=== PATIENT | female | born 1995 | race Caucasian/White ===

== ENCOUNTER 2023-01-22 09:59 | Outpatient (CLI) | payer OTHER, SELFPAY ==
[2023-01-22 10:33] LABS: Hematocrit 32.3 % (37.0-47.0); Hemoglobin 8.5 g/dL (12.0-15.0)
== END 2023-01-22 10:00 | disposition home or self-care (01) ==
LOC: ANHSURGERY 10:04
PROVIDERS: Anesthesiology; Visit Provider Obstetrics & Gynecology Gynecologic Oncology
DX: D64.9 Anemia, unspecified (principal); Z01.818 Encounter for other preprocedural examination
CPT/HCPCS: 36415; 85014; 85018

== ENCOUNTER 2023-01-26 02:41 | Day surgery (SDC) | payer OTHER, SELFPAY ==
--- NOTE | 2023-01-16 12:04 | SUR.PREOP ---
Report to the Outpatient Waiting Room, entrance under the green pavilion located off [facility], at time 0930 on date 01/26/23. Planned Procedure Time: 1130. Time changes happen often and if your time is changed the preop area will call you the afternoon before. - You and your visitor will be asked to self-screen and do not enter if you have any COVID symptoms. - A mask is optional within the hospital at this time. Patients may have clear liquids (water, carbonated beverages, clear teas, apple juice) until 3 hours prior to surgery with a maximum of 20 ounces. - NO CLEAR LIQUIDS AFTER 0830 - No food from midnight until time of surgery - Infants may have breast milk until 4 hours before surgery, formula 6 hours prior to surgery. - Children will be allowed to drink immediately following surgery. If applicable, please bring a bottle or sippy cup to assist with drinking. Juice, water, soda, and popsicles are readily available. For infants on formula, please bring formula the day of surgery. Pacifiers are allowed. Take the following medications with a SIP of water the morning of surgery: N/A DO NOT STOP ANY OF YOUR OTHER PRESCRIPTION MEDICATIONS PRIOR TO SURGERY ?EXCEPT THE FOLLOWING Medications to discontinue per physician N/A Date to take last dose Please no make-up, nail slovak, hairspray, perfume, deodorant, or body powder the day of surgery. No jewelry (including any body piercings) or valuables the day of surgery, leave them at home. Please take a shower or bath the night before, or the morning of, surgery with an antibacterial soap. Wear comfortable, loose fitting clothing. Children are encouraged to wear pajamas. - Jewelry must be removed prior to entering the operating room. Rings and piercings that are not removed may be cut off. - The hospital will not accept responsibility for valuables. - Please leave all valuables, including medications, at home the day of surgery. If you are going home after surgery, a licensed hole digger truck driver must drive you home. - NO public transportation without another adult if you receive anesthesia. - We recommend that an adult stay with you for 24 hours following discharge. - We also recommend that you do not drive, make important decision, drink alcoholic beverages, or take any drugs that were not prescribed by your health care provider for at least 24 hours after your discharge time. For Pediatric surgeries, we recommend two adults accompany the child home. Follow any additional instructions given to you from your surgeon. If you or anyone in your household have experienced Covid symptoms in the past week, please notify your surgeon or the nurse liaison at the phone number below for possible testing. Telephone instructions given to NICKY MEANS and asked if any additional questions and then verbalized understanding. Patient advised to call surgeon office or pre surgery nurse liaison [phone] if any additional questions.
[2023-01-16 12:19] VITALS: BMI 35.5
--- NOTE | 2023-01-25 14:23 | P.PNAN_ITS ---
Anes - Initial Pre Proc Eval Procedure: Operation Date: 01/26/23 07:30 Proposed Procedures p Diagnostic Laparoscopy, Bilateral Salpingectomy - Stephanie Cortes DO Date/Time: 01/25/23 14:23 Surgeon: Stephanie Cortes DO Pre Op Diagnosis: desires surgical sterility Patient Data Age: 27 Gender: F Height: 1.6 m Weight: 91 kg Allergies Allergy/AdvReac Type Severity Reaction Status Date / Time Sulfa (Sulfonamide Allergy Severe Swelling Verified 01/26/23 06:47 Antibiotics) of Lip/Tongue/Throat erythromycin base Allergy Unknown Verified 01/26/23 06:47 Home Medications Medication Instructions Recorded Confirmed Type No Home Medications 01/16/23 01/16/23 History Patient hx anesthesia problems: none Family hx anesthesia problems: none Results Review: All pre-operative results and documents have been reviewed as part of the pre- operative evaluation. [facility] Past Medical History Medical History (Updated 01/25/23 @ 14:23 by Ronni Massey DO) Anxiety Social History Social History Smoking status: Never smoker Living arrangements: with family Spiritual care concerns: No Anes - Eval Final PreProcedure Day of Procedure 01/25/23 14:23 Patient weight: obese Heart: regular rate and rhythm Lungs: clear to auscultation Airway: Mallampati scale class II Neurological: alert and oriented Last oral intake: >/= 8 hours ASA classification: II Emergent: no Anesthetic plan: proceed Anesthesia type and monitoring: general ETT and standard monitoring Results Review: All pre-operative results and documents have been reviewed as part of the pre- operative evaluation. Informed Consent: The patient's anesthetic plan and its attendant risks and benefits were discussed with the patient/family/POA. Questions were solicited and answers provided to the satisfaction of the patient/family/POA.
[2023-01-26] VITALS (7 sets, daily range): BP systolic 113–125; BP diastolic 72–90; PULSE 74–86; RESP 16–18; TEMP 36.6; O2SAT 94–100
[2023-01-26] MEDS: ACETAMINOPHEN 500 MG TABLET 1000 MG PO (06:50)
[2023-01-26] MEDS: LACTATED RINGERS 1,000 ML 30 ML IV CONT (06:50)
--- NOTE | 2023-01-26 07:16 | WPDHPUPDATE1 ---
History and Physical Update Update Date/Time: 01/26/23 07:16 History and Physical has been reviewed, including an updated exam of the patient. There are NO changes in the patient's condition. Risks, benefits, and alternatives have been discussed and questions answered. Patient agrees to proceed with procedure.
--- NOTE | 2023-01-26 07:16 | PM.IMHP ---
H&P: HPI History of Present Illness Date/Time: 01/26/23 07:16 Chief Complaint: I'm here for my sterilization procedure Narrative: Tessa is here desiring sterilization via bilateral salpingectomy Review of Systems Review of Systems: All systems reviewed & are unremarkable except as noted in HPI and below PMFSH Past Medical History Medical History (Updated 01/26/23 @ 07:18 by Stephanie Cortes DO) Anxiety Social History Social History Smoking status: Never smoker Living arrangements: with family Spiritual care concerns: No Meds Home Medications and Allergies Home Medications Medication Instructions Recorded Confirmed Type No Home Medications 01/16/23 01/16/23 History Allergies Allergy/AdvReac Type Severity Reaction Status Date / Time Sulfa (Sulfonamide Allergy Severe Swelling Verified 01/26/23 06:47 Antibiotics) of Lip/Tongue/Throat erythromycin base Allergy Unknown Verified 01/26/23 06:47 Exam Const: General: comfortable and no acute distress Eyes: General: appearance normal, both eyes and all related structures Resp: Effort & Inspection: normal respiratory effort Auscultation: clear to auscultation bilaterally Cardio: Rate: regular rate Rhythm: regular rhythm GI: GI Palp: Yes Soft to palpation Auscultation: normal bowel sounds Skin: General skin exam: normal color and no rashes or lesions noted Assessment and Plan Assessment and plan (1) Sterilization: Code(s): Z30.2 - Encounter for sterilization Status: Acute Plan Diagnostic laparoscopy, bilateral sapingectomy
[2023-01-26] MEDS: BUPIVACAINE/EPINEPHRINE 0.5% 10 ML VIAL 25 ML INFILTRATE (08:13)
--- NOTE | 2023-01-26 08:18 | P.OP_ITS ---
Procedure Note - Detailed Date of Procedure 01/26/23 Pre-op Diagnosis desires surgical sterility Post-op Diagnosis Same Procedure Performed Diagnostic laparoscopy, bilateral salpingectomy Surgeon Stephanie Cortes DO Manager [employer]ware [employer] Anesthesia General Indications Desires permanent sterilization Findings Normal vulva and vaginal canal. Medium cervix. Anteverted uterus sounded to 7 cm. Internally, the liver, intestines and pelvic organs were normal except for a physiologic right ovarian cyst. No suspicious lesions. Description of Procedure Patient was taken to the operating room where she was placed under general anesthesia. She was prepped and draped in the normal sterile fashion in a dorsal lithotomy position. No preoperative antibiotics were indicated. A time- out was performed. The cervix was visualized with a speculum and the posterior lip was grasped with a long Allis clamp. The cervix was sequentially dilated up to accommodate a Kroner uterine manipulator. Manipulator was placed, the speculum and instruments were removed, gloves were changed and attention was then turned to the abdomen. The skin above the umbilicus was grasped with 2 penetrating towel clamps. The area was injected with local. A small incision was made and a Veress needle was introduced. A saline water drop test was performed to confirm intraperitoneal placement. The abdomen was filled with CO2 to a filling pressure of 15 mmHg. The Veress needle was then removed and replaced with a 5 mm trocar. Inspection of the abdomen revealed no evidence of bowel or vascular injury upon entry. Patient was then placed in steep Trendelenburg position. Additional port sites in the right and left lower quadrants were identified, injected and incised. 5 mm trocars were introduced under direct visualization. The insufflation pressure was dropped to 11 mmHg. Survey of the abdomen and pelvis were as described above. The right tube was then elevated and was cauterized and transected off using the LigaSure. It was passed off through the web press operator assistant port. Procedure was repeated in identical fashion on the left-hand side. Survey of the surgical pedicles revealed good hemostasis. Instruments were removed the CO2 was allowed to escape and the trocars were removed from the abdomen. The abdominal incisions were closed with subcuticular 4-0 Vicryl and covered with skin glue. Uterine manipulator was removed. The patient was taken to the recovery room in stable condition. All instrument and sponge counts were correct at the conclusion of the procedure. Estimated Blood Loss 5 IV Fluids 600 Drains No Packing No Pathology Yes Complications No immediate complications Condition Stable Disposition PACU
[2023-01-26] MEDS: fentaNYL CITRATE INJ (*CRX) 100 MCG/2 ML VIAL 25 MCG IV PUSH ×6 (08:34→08:59)
[2023-01-26] MEDS: oxyCODONE HCL (*CRX) 5 MG TAB IR PO (09:15)
== END 2023-01-26 09:59 | disposition home or self-care (01) ==
PROVIDERS: Visit Provider Obstetrics & Gynecology Gynecologic Oncology
PROC: (CPT 49320; principal; 2023-01-26 07:30)
DX: Z30.2 Encounter for sterilization (principal)
CPT/HCPCS: 58661; 88302; A9270; J0330; J1100; J2250; J2405; J2704; J3010; J7030; J7120